=== PATIENT | female | born 1975 ===

== ENCOUNTER 2024-09-30 15:50 | Outpatient (AMB) | payer OTHER, SELFPAY ==
--- NOTE | 2024-09-30 15:54 | A.OFFPC_ITS ---
Vital Signs 09/30/24 16:01 Height 5 ft 1 in Weight 132 lb BMI 24.9 BP 102/68 Blood Pressure Location Rt brachial Position Sitting Respiration 12 Pulse 97 Pulse Source Pulse Oximeter Temp 96.9 F Temp Source Oral Pulse Oximetry (%) 97 Oxygen Delivery Method Room Air Intake Visit Reasons: est care/t2dm Intake Note: [facility] Public Relations Analyst Required: No Allergies No Known Allergies Allergy (Verified 09/30/24 15:55) Tobacco use date assessed: 09/30/24 Dental Screening Dental Screen Date: 09/30/24 Did you have a dental visit in the last 12 months?: Yes Did you have a dental problem in the last 6 months where you did not have access to dental care?: No Was dental information given to patient?: Patient has dentist HPI HPI Comments History of Present Illness Details This is a 49-year-old female with a past medical history of hyperlipidemia presenting [facility] Patient reports she was diagnosed with diabetes when she was at the emergency department in August this year for a lumbar strain. Her labs showed hyperglycemia with a POC initially of 352 which decreased to 264. GFR and creatinine were normal. She was discharged on metformin 500 mg twice daily. She is taking it, but it causes diarrhea and stomach upset. She vomits occasionally after taking it. She denies family history of diabetes. She denies drug or alcohol use. She does not smoke. She endorses symptoms of diabetes within the past few months including weight loss, polydipsia and fatigue. She has hyperlipidemia previously treated with simvastatin. She has been off this medicine for quite awhile. She moved from [place] 2 years ago. Her is a cook at [employer]. She has a glucometer, but she has not been using it. She switched to diet juice. She does like to eat sugary foods. She has some high carb foods in her diet like tortillas. ROS: Constitutional: + weight loss and fatigue, no fevers, chills or night sweats Eyes: No vision changes Respiratory: No shortness of breath Cardiovascular: No chest pain, chest pressure or chest discomfort. No palpitations or pedal edema. Gastrointestinal: See HPI. Denies abdominal pain or blood in stools. Genitourinary: No dysuria, hematuria, urinary frequency. Neurologic: No numbness or tingling or weakness Skin: No rash or wounds Physical exam: Constitutional: Alert, in no distress. Head: Normocephalic. Neck: Supple, Full range of motion. No lymphadenopathy. No palpable thyroid masses. Respiratory: Clear to auscultation. Cardiovascular: S1 S2 regular. No murmurs. Gastrointestinal: Abdomen soft, non-tender, non-distended. Normal bowel sounds. No palpable masses. Psychiatric: Normal mood and affect [facility] Medical History (Updated 09/30/24 @ 16:22 by ANDREA Renae) Hyperlipidemia Type II diabetes mellitus No pertinent past medical history Surgical History (Updated 09/30/24 @ 16:23 by ANDREA Renae) History of hysterectomy Family History (Updated 09/30/24 @ 16:01 by Oumar Nance) Mother Cancer Thyroid disorder Maternal Grandmother Cancer Paternal Uncle Cancer Father Cardiovascular disease Social History (Updated 09/30/24 @ 15:59 by Oumar Nance) Household Members: Spouse Both parents involved: No Caregiver staying overnight: No Housing: House Are you a primary companion caregiver to a significant other at home: No Do you presently have visiting nurse or other home services: No 75 years or older and lives alone: No Alcohol intake: never Patient Tobacco Use Status: Never used Tobacco e-Cigarette/Vaping Use: Never Used Second Hand Smoke Exposure: No Current occupational status: employed 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 1. Little interest or pleasure in doing things: not at all 2. Feeling down, depressed, or hopeless: not at all 3. Trouble falling or staying asleep, or sleeping too much: not at all 4. Feeling tired or having little energy: not at all 5. Poor appetite or overeating: not at all 6. Feeling bad about yourself - or that you are a failure or have let yourself or your family down: not at all 7. Trouble concentrating on things, such as reading the newspaper or watching television: not at all 8. Moving or speaking so slowly that other people could have noticed. Or the opposite - being so fidgety or restless that you have been moving around a lot more than usual: not at all 9. Thoughts that you would be better off or of hurting yourself in some way: not at all Total score: 0 81366 - PHQ-9 Billing: Yes Source: Developed by Drs. Chad Collins, Amanda Do, Blayne Coker and colleagues, with an educational jenny from [employer]. Thrive Questionnaire Date Thrive assessed: 09/30/24 I am a: Patient What is your living situation today?: I have a steady place to live Within the past 12 months, did the food you bought not last and you didn't have the money to get more?: I choose not to answer this question Within the past 12 months, did you worry whether your food would run out before you got money to buy more?: I choose not to answer this question Do you have trouble paying for medicines?: No Do you have trouble getting transportation to medical appointments?: No Do you have trouble paying your heating and electricity bill?: No Do you have trouble taking care of your child, family member or friend?: No Do you have trouble with day-to-day activities such as bathing, preparing meals, shopping, managing finances, etc.?: No Are you currently unemployed and looking for a job?: No Are you interested in more education?: No Please select the resources that you would like help with: None Currently or been in a relationship where the following occur: I choose not to answer THRIVE Score: 0 AUDIT C Alcohol Use Questionnaire (AUDIT-C) 1. How often do you have a drink containing alcohol?: Never 3. How often do you have six or more drinks on one occasion?: Never Total Score: 0 KAROLYN-7 AMB Questionnaire KAROLYN-7 Date KAROLYN - 7 assessed: 09/30/24 Feeling nervous, anxious, or on edge: 0 = Not at all Not being able to stop or control worryin = Not at all Worrying too much about different things: 0 = Not at all Trouble relaxin = Not at all Being so restless that it is hard to sit still: 0 = Not at all Becoming easily annoyed or irritable: 0 = Not at all Feeling afraid as if something awful might happen: 0 = Not at all Total KAROLYN-7 score (0-4 normal; 5-9 mild; 10-14 moderate; 15-21 severe): 0 Source: Developed by Drs. Chad Collins, Amanda Do, Blayne Coker and colleagues, with an educational jenny from [employer]. KAROLYN-7 Assessment Billing KAROLYN-7 Assessment Tool: KAROLYN-7 Assessment 12451 Physical exam (Primary Care) Vital Signs: Last Vital Signs Temp 96.9 F 09/30/24 16:01 Pulse 97 09/30/24 16:01 Resp 12 09/30/24 16:01 BP 102/68 09/30/24 16:01 Pulse Ox 97 09/30/24 16:01 Oxygen Delivery Method Room Air 09/30/24 16:01 BMI result Body Mass Index 24.9 Tobacco/Smoking Status: Tobacco use Status Tobacco use date assessed 09/30/24 09/30/24 15:57 Patient Tobacco Use Status Never used Tobacco 09/30/24 16:03 e-Cigarette/Vaping Use Never Used 09/30/24 16:03 PHQ-9: PHQ-9 Score PHQ-9: Total score 0 09/30/24 15:55 Thrive Assessment: Date of Thrive Assessment Date Thrive assessed 09/30/24 09/30/24 15:55 Currently or been in a relationship where the following occur: I choose not to answer Coding Level of Care Code New Pt Level 4 (23975) Complex EM visit Add On G2211 Diagnoses Hyperlipidemia E78.5 Type II diabetes mellitus E11.9 Additional Codes KAROLYN-7 Assessment Billing - KAROLYN-7 Assessment Tool: KAROLYN-7 Assessment 64136 ([id number]) PHQ-9 - 64754 - PHQ-9 Billing: Yes ([id number]) Assessment & Plan Assessment & Plan (1) Hyperlipidemia: Code(s): E78.5 - Hyperlipidemia, unspecified Category: Medical (2) Type II diabetes mellitus: Code(s): E11.9 - Type 2 diabetes mellitus without complications Category: Medical Plan Discussed pathophysiology of Type II Diabetes Mellitus with the patient in detail.? I explained the long term acute care registered nurse risks and complications associated with uncontrolled diabetes including nephropathy, neuropathy, peripheral vascular disease, retinopathy, increased risk of heart disease and stroke.? Discussed lifestyle modification with the patient. Recommended 30 minutes of moderately vigorous exercise 5 days per week to promote weight loss. The patient is referred for an eye exam. Refer to dietitian. Given information from [employer]. Diabetic diet reviewed. Given normal BMI and no family history of diabetes I will check KAROLYN and islet cell antibodies and C-peptide. Stop your current metformin prescription and start Metformin extended release 500 mg 2 tablets in the morning. You can take 1 tablet twice if you prefer it. If GI upset does not resolve in 1-2 weeks on the new prescription call the office. Please check blood sugars once in the morning before eating and try to check 1-2 hours after lunch and/or dinner. Bring your meter to the next appointment. If you experience low blood sugar (blood sugar under 70), treat this by eating a chewable fruit candy like skittles or jelly beans (about 8 pieces), 4 ounces (1/2 cup) of fruit juice (not diet), 1 tablespoon of honey or 4 glucose tablets. If your blood sugar is under 55, take double the amount of one of the above. Recheck your blood sugar in [address] if you don't have a reliable way to check your blood sugar or if you have signs or symptoms of low sugar. Check lipid profile and discuss reinitiating statin at next appointment. She will have fasting labs completed. Follow up in 1 month for type 2 diabetes. Written instructions given to the patient. Orders: Orders Hemoglobin A1c Today E11.9 - Type 2 diabetes mellitus without complications Comprehensive Met. Panel Today E11.9 - Type 2 diabetes mellitus without complications TSH reflex Free T4 Today E11.9 - Type 2 diabetes mellitus without complications Vitamin B12 Today E11.9 - Type 2 diabetes mellitus without complications, Z91.89 - Other specified personal risk factors, not elsewhere classified Lipid Panel Today E11.9 - Type 2 diabetes mellitus without complications, E78.5 - Hyperlipidemia, unspecified B Type Natriuretic Peptide Today E11.9 - Type 2 diabetes mellitus without complications Microalbumin, Random (w Creat) Today E11.9 - Type 2 diabetes mellitus without complications Islet Cell Antibody Scrn/Titer Today E11.9 - Type 2 diabetes mellitus without complications Glutamic acid decarboxylase Ab Today E11.9 - Type 2 diabetes mellitus without complications C Peptide Today E11.9 - Type 2 diabetes mellitus without complications Referrals Ophthalmology Referral E11.9 - Type 2 diabetes mellitus without complications Wireless Consultant Nutrition Referral E11.65 - Type 2 diabetes mellitus with hyperglycemia Medications: New metformin ER 1,000 mg (2 x 500 mg) PO DAILY 180 tabs 0RF Discontinued metformin Discontinued Reason: Doctor's Order 500 mg PO BIDWMEAL 60 tabs 2RF Scribe Plan - Not visible on output: Stop your current metformin prescription and start Metformin extended releast 500 mg 2 tablets in the morning. You can take 1 tablet twice if you prefer it. Please check blood sugars once in the morning before eating and try to check 1-2 hours after lunch and/or dinner. Bring your meter to the next appointment. If you experience low blood sugar (blood sugar under 70), treat this by eating a chewable fruit candy like skittles or jelly beans (about 8 pieces), 4 ounces (1/2 cup) of fruit juice (not diet), 1 tablespoon of honey or 4 glucose tablets. If your blood sugar is under 55, take double the amount of one of the above. Recheck your blood sugar in [address] if you don't have a reliable way to check your blood sugar or if you have signs or symptoms of low sugar. I placed referral to the live out nanny and for an eye exam (you will get a letter in the mail and should receive phone calls). Please have fasting labwork done at one of the [facility] lab lo cations. [email or web address]
[2024-09-30 16:01] VITALS: BP 102/68; PULSE 97; RESP 12; TEMP 36.1; O2SAT 97; BMI 24.9
== END 2024-09-30 16:35 | disposition home or self-care (01) ==
PROVIDERS: PCP Physician Assistant Medical; Visit Provider Physician Assistant Medical
DX: E78.5 Hyperlipidemia, unspecified (principal); E11.9 Type 2 diabetes mellitus without complications

== ENCOUNTER → 2024-09-30 15:50 | Outpatient (BNVA) | payer OTHER, SELFPAY | PROVIDERS: PCP Physician Assistant Medical; Visit Provider Physician Assistant Medical | DX: E11.9 Type 2 diabetes mellitus without complications (principal); E78.5 Hyperlipidemia, unspecified | CPT/HCPCS: 96127 ==

== ENCOUNTER 2024-10-27 11:00 | Outpatient (AMB) | payer OTHER, SELFPAY ==
--- NOTE | 2024-10-27 11:12 | A.OFFVIS_ITS ---
VS Expanded 10/27/24 11:18 10/27/24 11:22 Height 5 ft 1 in 5 ft 1 in Weight 127 lb 10.362 oz 128 lb BMI 24.1 24.2 Intake Visit Reasons: Type 2 diabetes mellitus with hyperglycemia Allergies No Known Allergies Allergy (Verified 11/04/24 15:07) Nutrition Presentation Details: Pt presents for MNT for T2DM recently diagnosed food frequency fruits/d: 0-1/d ve-2/d fish: 0-1/wk dairy: 1-2 /d starches > 12/d beverages: water/milk/juice physical activity ADL etoh/smoking --- BS Monitoring Most Recent Diabetes Results: Microalb/Creat Ratio 14.6 ug/mg cr (<30) 11/03/24 Cholesterol 244 mg/dL (<200) H 11/03/24 HDL Cholesterol 66 mg/dL (>40) 11/03/24 Triglycerides 172 mg/dL (<150) H 11/03/24 Creatinine 0.63 mg/dL (0.5-1.4) 11/03/24 Blood Urea Nitrogen 13 mg/dL (9-16) 11/03/24 Sodium 139 mmol/L (135-145) 11/03/24 Potassium 3.8 mmol/L (3.3-5.1) 11/03/24 Chloride 107 mmol/L (96-108) 11/03/24 Carbon Dioxide 26 mmol/L (22-29) 11/03/24 Calcium 9.0 mg/dL (8.4-10.2) 11/03/24 AST 16 U/L (5-31) 11/03/24 ALT 14 U/L (0-31) 11/03/24 Total Protein 7.0 g/dL (6.5-8.0) 11/03/24 Albumin 4.0 g/dL (3.5-5.0) 11/03/24 RAR-Ihficfe-[place]t.[place] Equation Height: 5 ft 1 in Weight: 128 lb Resting Metabolic Rate: 1136.47 Calculated Activity Level: Mild Activity Calories Needed to Maintain Weight: 1562.65 Diagnosis Nutrition problem #1: food nutri know defi As related to (etiology) #1: diagnosis As evidenced by (sign/symptom) #1: knowledge deficit of diet [facility] Medical History (Updated 11/04/24 @ 15:39 by ANDREA Renae) Low back pain Left shoulder pain Hyperlipidemia Type II diabetes mellitus No pertinent past medical history Surgical History (Updated 09/30/24 @ 16:23 by ANDREA Renae) History of hysterectomy Family History (Updated 09/30/24 @ 16:01 by Oumar Nance MA) Mother Cancer Thyroid disorder Maternal Grandmother Cancer Paternal Uncle Cancer Father Cardiovascular disease Social History (Updated 09/30/24 @ 15:59 by Oumar Nance MA) Household Members: Spouse Both parents involved: No Caregiver staying overnight: No Housing: House Are you a primary respiratory care technician to a significant other at home: No Do you presently have visiting nurse or other home services: No 75 years or older and lives alone: No Alcohol intake: never Patient Tobacco Use Status: Never used Tobacco e-Cigarette/Vaping Use: Never Used Second Hand Smoke Exposure: No Current occupational status: employed 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 Cognitive needs: No Hearing needs: No Vision needs: No Assessment & Plan Assessment & Plan (1) Type II diabetes mellitus: Code(s): E11.9 - Type 2 diabetes mellitus without complications Category: Medical Plan: Wt: 58 Kg ( 11/02 ) Est kcal needs as per MSJ: 1600 (40% carb, 30% protein/fat) Est fluid needs as per 25-30 ml/d: 1745 Est prot per day as per 1 g/kg bw: 60 Recommend fiber intake : 8-10 g per day and gradually increase to 25-28 g per day for women and 35-38 g for men or as tolerated Recommend sodium intake per day : less than 1500 mg less than 2000 mg Educated patient on: ( R = reviewed V = verbalizes understanding N/R = needs review N/A = not applicable * Food sources of carbohydrate, adequate serving sizes and its role in various health conditions: R * Differences between complex carbohydrates a simple carbohydrates, role of fiber in diet: R * Lean protein sources of foods: R V NR * Differences between types of fats and role in diet (mono on saturated fat fatty acids, saturated fatty acids, trans fats): R V N/R * Food sources of sodium in salt and healthy modifications for heart health in kidney health: R V R/V * Vitamins and minerals: R V N/R * Healthy plate method concept: R * Physical activity: Benefits a precaution: R V N/R * Hypoglycemia protocol (rule of 15): R V N/R * Dietary prevention of Hyperglycemia: R V R/V Patient Instructions: Choose fiber rich foods follow healthy plate method, 30-45 g of carbs per meal and 0-20 g as snack Keep hydrated by having water with meals/snacks Coding Level of Care Code Nutr Indiv Intake (49226) Diagnoses Type II diabetes mellitus E11.9 Time Spent (min) 30
[2024-10-27 11:18] VITALS: BMI 24.1
[2024-11-04 22:08] VITALS: BMI 24.2
== END 2024-10-27 11:35 | disposition home or self-care (01) ==
LOC: HO.ENCR 11:01
PROVIDERS: PCP Physician Assistant Medical; Visit Provider Dietitian, Registered
DX: E11.9 Type 2 diabetes mellitus without complications (principal)

== ENCOUNTER → 2024-10-27 11:00 | Outpatient (BNVA) | payer OTHER, SELFPAY | PROVIDERS: PCP Physician Assistant Medical; Visit Provider Dietitian, Registered | DX: E11.9 Type 2 diabetes mellitus without complications (principal); Z71.3 Dietary counseling and surveillance | CPT/HCPCS: 97802 ==

== ENCOUNTER 2024-11-03 08:40 | Outpatient (REF) | payer OTHER, SELFPAY ==
[2024-11-03 11:07] LABS: Estimated Average Glucose 235 mg/dL; Hemoglobin A1c % 9.8 % (<6.0)
[2024-11-03 11:34] LABS: B Type Natriuretic Peptide < 10 pg/mL (<100)
[2024-11-03 11:56] LABS: Creatinine Urine 143.56 mg/dL; Microalbum/Creatinine Ratio Ur 14.6 ug/mg cr (<30)
[2024-11-03 11:58] LABS: Alanine Aminotransferase 14 U/L (0-31); Alkaline Phosphatase 77 U/L (39-117); Anion Gap 10 (12-20); Aspartate Amino Transferase 16 U/L (5-31); Bilirubin Total 0.8 mg/dL (0.0-1.0); Blood Urea Nitrogen 13 mg/dL (9-16); Carbon Dioxide 26 mmol/L (22-29); Chloride 107 mmol/L (96-108); Cholesterol 244 mg/dL (<200); Estimated Glomerular Filt Rate > 60; Glucose Random 152 mg/dL (60-115); HDL Cholesterol 66 mg/dL (>40); LDL Cholesterol Calculated 144 mg/dL (<100); Potassium 3.8 mmol/L (3.3-5.1); Sodium 139 mmol/L (135-145); TSH reflex Free T4 1.57 uIU/mL (0.32-4.0); Triglycerides 172 mg/dL (<150)
[2024-11-03 12:31] LABS: Vitamin B12 1259 pg/mL (200-900)
[2024-11-04 17:18] LABS: C Peptide 1.08 ng/mL (0.80-3.85)
[2024-11-07 00:04] LABS: Islet Cell Antibody Screen NEGATIVE (NEGATIVE)
[2024-11-08 16:38] LABS: Glutamic acid decarboxylase Ab <5 IU/mL (<5)
== END 2024-11-03 08:41 | disposition home or self-care (01) ==
LOC: HO.WFDLDS 08:40
PROVIDERS: PCP Physician Assistant Medical; Visit Provider Physician Assistant Medical
DX: E11.9 Type 2 diabetes mellitus without complications (principal); E78.5 Hyperlipidemia, unspecified; Z91.89 Other specified personal risk factors, not elsewhere classified
CPT/HCPCS: 36415; 80053; 80061; 82043; 82570; 82607; 83036; 83880; 84443; 84681; 86341

== ENCOUNTER 2024-11-04 14:59 | Outpatient (AMB) | payer OTHER, SELFPAY ==
--- NOTE | 2024-11-04 15:06 | A.OFFPC_ITS ---
Vital Signs 11/04/24 15:13 Height 5 ft 1 in Weight 128 lb 8 oz BMI 24.3 BP 115/68 Blood Pressure Location Rt brachial Position Sitting Respiration 12 Pulse 96 Pulse Source Pulse Oximeter Temp 97.1 F Temp Source Oral Pulse Oximetry (%) 96 Oxygen Delivery Method Room Air Intake Visit Reasons: diabetes follow up Intake Note: Follow up diabetes Test Engine Operator Required: No Allergies No Known Allergies Allergy (Verified 11/04/24 15:07) Tobacco use date assessed: 11/04/24 Dental Screening Dental Screen Date: 11/04/24 Did you have a dental visit in the last 12 months?: Yes Did you have a dental problem in the last 6 months where you did not have access to dental care?: No Was dental information given to patient?: Patient has dentist HPI HPI Comments History of Present Illness Details This is a 49-year-old female with a past medical history of hyperlipidemia and type 2 diabetes presenting for follow up. She was diagnosed with type 2 diabetes in August 2023 when she was seen at the emergency department for a lumbar strain. Her labs showed hyperglycemia with a POC initially of 352. GFR and creatinine were normal. She was discharged on m etformin 500 mg twice a day, but it caused diarrhea and stomach upset and occasional vomiting so it was switched to the extended release formula. She is tolerating this medication and compliant with it. I reviewed a list of her glucose readings which have improved but are still suboptimal. No hypoglycemic events. Hemoglobin A1c is 9.8%. I reviewed her lab results from 11/03/2024. Her renal function is normal. There is no proteinuria. TSH was normal. Her LDL cholesterol and triglycerides are elevated at 144 and 172 respectively. KAROLYN antibody, islet cell antibody and C- peptide are pending. There is no family history of type 1 diabetes. She moved from [place] 2 years ago. Her is a cook at [employer]. She switched to diet juice. She does like to eat sugary foods. She has some high carb foods in her diet like tortillas. Patient says she is still having pain across both sides of her lower back and the middle. She also endorses shoulder pain for the last few months on the left side. It hurts to raise her shoulder up. Her back hurts more when she bends forward. Pain is moderate. No numbness, tingling or weakness in the extremities. No loss of bowel or bladder control. No history of trauma. She is requesting a refill on muscle relaxant. She takes Tylenol as needed for the pain. ROS: Constitutional: Denies weight loss, fatigue, fevers, chills or night sweats. Eyes: No vision changes Respiratory: No shortness of breath, cough or wheezing. Cardiovascular: No chest pain, chest pressure or chest discomfort. No palpitations or pedal edema. Gastrointestinal: No abdominal pain, nausea, vomiting, diarrhea or blood in stools. Genitourinary: No dysuria, hematuria, urinary frequency. Neurologic: No numbness or tingling or weakness Skin: No rash or wounds Physical exam: Constitutional: Alert, in no distress. Head: Normocephalic. Neck: Supple, Full range of motion. No lymphadenopathy. No palpable thyroid masses. Respiratory: Clear to auscultation. Cardiovascular: S1 S2 regular. No murmurs. Gastrointestinal: Abdomen soft, non-tender, non-distended. Normal bowel sounds. No palpable masses. Psychiatric: Normal mood and affect Shoulders: Nontender to palpation. Patient is able to lift her left arm up but can not go past 180 degrees., and this is painful. Positive left empty can test. Shoulder nontender to palpation. Back: No midline tenderness. Decreased flexion which is painful. Full range of motion otherwise. Negative straight leg raises bilaterally. Neurologic: Extremity strength 5/5 bilaterally. Sensation intact bilaterally. Extremities: Set symmetric peripheral pulses of the upper and lower extremities. [facility] Medical History (Updated 11/04/24 @ 15:39 by ANDREA Renae) Low back pain Left shoulder pain Hyperlipidemia Type II diabetes mellitus No pertinent past medical history Surgical History (Updated 09/30/24 @ 16:23 by ANDREA Renae) History of hysterectomy Family History (Updated 09/30/24 @ 16:01 by Oumar Nance MA) Mother Cancer Thyroid disorder Maternal Grandmother Cancer Paternal Uncle Cancer Father Cardiovascular disease Social History (Updated 09/30/24 @ 15:59 by Oumar Nance MA) Household Members: Spouse Both parents involved: No Caregiver staying overnight: No Housing: House Are you a primary hearing healthcare practitioner to a significant other at home: No Do you presently have visiting nurse or other home services: No 75 years or older and lives alone: No Alcohol intake: never Patient Tobacco Use Status: Never used Tobacco e-Cigarette/Vaping Use: Never Used Second Hand Smoke Exposure: No Current occupational status: employed 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 Cognitive needs: No Hearing needs: No Vision needs: No Questionnaire Thrive Questionnaire Date Thrive assessed: 09/30/24 I am a: Patient What is your living situation today?: I have a steady place to live Within the past 12 months, did the food you bought not last and you didn't have the money to get more?: I choose not to answer this question Within the past 12 months, did you worry whether your food would run out before you got money to buy more?: I choose not to answer this question Do you have trouble paying for medicines?: No Do you have trouble getting transportation to medical appointments?: No Do you have trouble paying your heating and electricity bill?: No Do you have trouble taking care of your child, family member or friend?: No Do you have trouble with day-to-day activities such as bathing, preparing meals, shopping, managing finances, etc.?: No Are you currently unemployed and looking for a job?: No Are you interested in more education?: No Please select the resources that you would like help with: None Currently or been in a relationship where the following occur: I choose not to answer THRIVE Score: 0 KAROLYN-7 AMB Questionnaire KAROLYN-7 Date KAROLYN - 7 assessed: 09/30/24 Source: Developed by Drs. Chad Collins, Amanda Do, Blayne Coker and colleagues, with an educational jenny from [employer]. Physical exam (Primary Care) Vital Signs: Last Vital Signs Temp 97.1 F 11/04/24 15:13 Pulse 96 11/04/24 15:13 Resp 12 11/04/24 15:13 BP 115/68 11/04/24 15:13 Pulse Ox 96 11/04/24 15:13 Oxygen Delivery Method Room Air 11/04/24 15:13 BMI result Body Mass Index 24.3 Tobacco/Smoking Status: Tobacco use Status Tobacco use date assessed 11/04/24 11/04/24 15:08 Patient Tobacco Use Status Never used Tobacco 11/04/24 15:06 e-Cigarette/Vaping Use Never Used 11/04/24 15:06 Thrive Assessment: Date of Thrive Assessment Date Thrive assessed 09/30/24 11/04/24 15:06 Currently or been in a relationship where the following occur: I choose not to answer Coding Level of Care Code [place] Pt Level 4 (23148) Complex EM visit Add On G2211 Diagnoses Hyperlipidemia E78.5 Type II diabetes mellitus E11.9 Low back pain M54.50 Left shoulder pain M25.512 Assessment & Plan Assessment & Plan (1) Hyperlipidemia: Code(s): E78.5 - Hyperlipidemia, unspecified Category: Medical Plan: Recommended Mediterranean diet. Avoid full fat dairy products and red meat. Exercise regularly. Avoid tobacco use. Start rosuvastatin 10 mg. Side effects and administration reviewed. (2) Type II diabetes mellitus: Code(s): E11.9 - Type 2 diabetes mellitus without complications Category: Medical Plan: Discussed pathophysiology of Type II Diabetes Mellitus with the patient in detail.? I explained the long goods drier risks and complications associated with uncontrolled diabetes including nephropathy, neuropathy, peripheral vascular disease, retinopathy, increased risk of heart disease and stroke.? Increase metformin extended release to 2 pills in the morning and 1 pill at night for a week and then increase to 2 pills twice daily. If you experience low blood sugars decrease to 2 pills in the morning and 1 at night. Continue to check blood sugars regularly and bring glucometer to appointment. If you experience low blood sugar (blood sugar under 70), treat this by eating a chewable fruit candy like skittles or jelly beans (about 8 pieces), 4 ounces (1/2 cup) of fruit juice (not diet), 1 tablespoon of honey or 4 glucose tablets. If your blood sugar is under 55, take double the amount of one of the above. Recheck your blood sugar in [address] if you don't have a reliable way to check your blood sugar or if you have signs or symptoms of low sugar. (3) Low back pain: Code(s): M54.50 - Low back pain, unspecified Category: Medical Plan: X-ray ordered for initial evaluation. Continue referral to physical therapy. Refilled cyclobenzaprine. Advised not to drive or operate heavy machinery since the medication can cause sedation and drowsiness. (4) Left shoulder pain: Code(s): M25.512 - Pain in left shoulder Category: Medical Plan: X-ray ordered for initial evaluation. Continue referral to physical therapy. Plan Follow up in 3 months for type 2 diabetes. Orders: Orders XR shoulder LT min 2V 11/04/24 M25.512 - Pain in left shoulder XR lumbar spine 2-3V 11/04/24 M54.50 - Low back pain, unspecified Medications: New lancets (OneTouch Delica Plus Lancet) Use as directed to check blood glucose twice daily. 100 ea 5RF cyclobenzaprine 5 - 10 mg (1 - 2 x 5 mg) PO BEDTIME PRN 60 tabs 0RF muscle spasm rosuvastatin (Crestor) 10 mg PO .qhs 90 tabs 1RF Changed From metformin ER 1,000 mg (2 x 500 mg) PO DAILY 180 tabs 0RF To metformin ER 1,000 mg (2 x 500 mg) PO BID 360 tabs 0RF
[2024-11-04 15:13] VITALS: BP 115/68; PULSE 96; RESP 12; TEMP 36.2; O2SAT 96; BMI 24.3
== END 2024-11-04 15:42 | disposition home or self-care (01) ==
LOC: HO.HMCFM 15:00
PROVIDERS: PCP Physician Assistant Medical; Visit Provider Physician Assistant Medical
DX: E78.5 Hyperlipidemia, unspecified (principal); E11.9 Type 2 diabetes mellitus without complications; M54.50 Low back pain, unspecified; M25.512 Pain in left shoulder

== ENCOUNTER 2025-02-02 09:22 | Outpatient (AMB) | payer OTHER, SELFPAY ==
--- NOTE | 2025-02-02 09:36 | A.OFFVIS_ITS ---
VS Expanded 02/02/25 09:37 Height 5 ft 1 in Weight 125 lb 10.616 oz BMI 23.7 Intake Visit Reasons: T2DM Allergies No Known Allergies Allergy (Verified 11/04/24 15:07) Nutrition Presentation Details: PT presents for MNT f/u for T2DM Pt did not bring glucometer to this appt. REports fasting BG range from 170s to 190s Pt reports working at [employer] and lacks appetite during the day , works from 3-11 pm and tends to have larger portion of a meal in the evening 75-90 g of carbs at 9 pm meal Typical meal intake 10: 2 eggs with 1- 2 corn tortilla, coffee with diet sugar and almond milk 3-5 pm sandwich or fruit or may skip 8-9 pm pasta and sweet potato/ broccoli and fish 11pm : fruit (not daily) BS Monitoring Most Recent Diabetes Results: Microalb/Creat Ratio, (<30) 14.6 ug/mg cr 11/03/24 Cholesterol, (<200) 244 mg/dL H 11/03/24 HDL Cholesterol, (>40) 66 mg/dL 11/03/24 Triglycerides, (<150) 172 mg/dL H 11/03/24 Creatinine, (0.5-1.4) 0.63 mg/dL 11/03/24 BUN, (9-16) 13 mg/dL 11/03/24 Sodium, (135-145) 139 mmol/L 11/03/24 Potassium, (3.3-5.1) 3.8 mmol/L 11/03/24 Chloride, (96-108) 107 mmol/L 11/03/24 Carbon Dioxide, (22-29) 26 mmol/L 11/03/24 Calcium, (8.4-10.2) 9.0 mg/dL 11/03/24 AST, (5-31) 16 U/L 11/03/24 ALT, (0-31) 14 U/L 11/03/24 Total Protein, (6.5-8.0) 7.0 g/dL 11/03/24 Albumin, (3.5-5.0) 4.0 g/dL 11/03/24 [facility] Medical History (Updated 11/04/24 @ 15:39 by NADREA Renae) Low back pain Left shoulder pain Hyperlipidemia Type II diabetes mellitus No pertinent past medical history Surgical History (Updated 09/30/24 @ 16:23 by ANDREA Renae) History of hysterectomy Family History (Updated 09/30/24 @ 16:01 by Oumar Nance MA) Mother Cancer Thyroid disorder Maternal Grandmother Cancer Paternal Uncle Cancer Father Cardiovascular disease Social History (Updated 09/30/24 @ 15:59 by Oumar Nance MA) Household Members: Spouse Both parents involved: No Caregiver staying overnight: No Housing: House Are you a primary youth care worker to a significant other at home: No Do you presently have visiting nurse or other home services: No 75 years or older and lives alone: No Alcohol intake: never Patient Tobacco Use Status: Never used Tobacco e-Cigarette/Vaping Use: Never Used Second Hand Smoke Exposure: No Current occupational status: employed 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 Cognitive needs: No Hearing needs: No Vision needs: No Assessment & Plan Assessment & Plan (1) Type II diabetes mellitus: Code(s): E11.9 - Type 2 diabetes mellitus without complications Category: Medical Plan: Wt: 58 Kg ( 11/02 ), 57 kg (02/02) Est kcal needs as per MSJ: 1600 (40% carb, 30% protein/fat) Est fluid needs as per 25-30 ml/d: 1745 Est prot per day as per 1 g/kg bw: 60 Recommend fiber intake : 8-10 g per day and gradually increase to 25-28 g per day for women and 35-38 g for men or as tolerated Recommend sodium intake per day : less than 1500 mg less than 2000 mg Educated patient on: ( R = reviewed V = verbalizes understanding N/R = needs review N/A = not applicable * Food sources of carbohydrate, adequate serving sizes and its role in various health conditions: R * Differences between complex carbohydrates a simple carbohydrates, role of fiber in diet: R * Lean protein sources of foods: R * Differences between types of fats and role in diet (mono on saturated fat fatty acids, saturated fatty acids, trans fats): R V N/R * Food sources of sodium in salt and healthy modifications for heart health in kidney health: R V R/V * Vitamins and minerals: R V N/R * Healthy plate method concept: R * Physical activity: Benefits a precaution: R V * Hypoglycemia protocol (rule of 15): R V N/R * Dietary prevention of Hyperglycemia: R Patient Instructions: Have protein glucerna shake at 5 pm as a snack work on balancing meal and have either a 1-2 serving of pasta or sweet potato with protein /vegetable at 8 pm meal (working on reducing on amount of carb at night meal) monitor your blood sugar bring to your next appt with Renetta on 02/2025 Coding Level of Care Code Nutr Indiv Subseq ([id number]) Diagnoses Type II diabetes mellitus E11.9 Time Spent (min) 30
[2025-02-02 09:37] VITALS: BMI 23.7
== END 2025-02-02 10:06 | disposition home or self-care (01) ==
LOC: HO.ENCR 09:22
PROVIDERS: PCP Physician Assistant Medical; Visit Provider Dietitian, Registered
DX: E11.9 Type 2 diabetes mellitus without complications (principal)

== ENCOUNTER → 2025-02-02 09:22 | Outpatient (BNVA) | payer OTHER, SELFPAY | PROVIDERS: PCP Physician Assistant Medical; Visit Provider Dietitian, Registered | DX: E11.9 Type 2 diabetes mellitus without complications (principal) | CPT/HCPCS: 97803 ==

== ENCOUNTER 2025-03-23 09:26 | Outpatient (AMB) | payer OTHER, SELFPAY ==
[2025-03-23 09:51] VITALS: BMI 23.7
--- NOTE | 2025-03-23 09:51 | A.OFFVIS_ITS ---
VS Expanded 03/23/25 09:51 Height 5 ft 1 in Weight 125 lb 10.616 oz BMI 23.7 Intake Visit Reasons: T2DM Allergies No Known Allergies Allergy (Verified 11/04/24 15:07) Nutrition Presentation Details: Pt presents for MNT f/u for T2DM Pt not monitoring herself this past month, had DC and was in hospt for almost a month Pt reports needing to get into a meal routine since she does not have a meal routine. 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 BS Monitoring Most Recent Diabetes Results: Microalb/Creat Ratio, (<30) 14.6 ug/mg cr 11/03/24 Cholesterol, (<200) 244 mg/dL H 11/03/24 HDL Cholesterol, (>40) 66 mg/dL 11/03/24 Triglycerides, (<150) 172 mg/dL H 11/03/24 Creatinine, (0.5-1.4) 0.63 mg/dL 11/03/24 BUN, (9-16) 13 mg/dL 11/03/24 Sodium, (135-145) 139 mmol/L 11/03/24 Potassium, (3.3-5.1) 3.8 mmol/L 11/03/24 Chloride, (96-108) 107 mmol/L 11/03/24 Carbon Dioxide, (22-29) 26 mmol/L 11/03/24 Calcium, (8.4-10.2) 9.0 mg/dL 11/03/24 AST, (5-31) 16 U/L 11/03/24 ALT, (0-31) 14 U/L 11/03/24 Total Protein, (6.5-8.0) 7.0 g/dL 11/03/24 Albumin, (3.5-5.0) 4.0 g/dL 11/03/24 [facility] Medical History (Updated 11/04/24 @ 15:39 by ANDREA Renae) Low back pain Left shoulder pain Hyperlipidemia Type II diabetes mellitus No pertinent past medical history Surgical History (Updated 09/30/24 @ 16:23 by ANDREA Renae) History of hysterectomy Family History (Updated 09/30/24 @ 16:01 by Oumar Nance MA) Mother Cancer Thyroid disorder Maternal Grandmother Cancer Paternal Uncle Cancer Father Cardiovascular disease Social History (Updated 09/30/24 @ 15:59 by Oumar Nance MA) Household Members: Spouse Both parents involved: No Caregiver staying overnight: No Housing: House Are you a primary child care teacher to a significant other at home: No Do you presently have visiting nurse or other home services: No 75 years or older and lives alone: No Alcohol intake: never Patient Tobacco Use Status: Never used Tobacco e-Cigarette/Vaping Use: Never Used Second Hand Smoke Exposure: No Current occupational status: employed 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 Cognitive needs: No Hearing needs: No Vision needs: No Assessment & Plan Assessment & Plan (1) Type II diabetes mellitus: Code(s): E11.9 - Type 2 diabetes mellitus without complications Category: Medical Plan: Wt: 58 Kg ( 11/02 ), 57 kg (02/02), 04/04 Est kcal needs as per MSJ: 1600 (40% carb, 30% protein/fat) Est fluid needs as per 25-30 ml/d: 1745 Est prot per day as per 1 g/kg bw: 60 Recommend fiber intake : 8-10 g per day and gradually increase to 25-28 g per day for women and 35-38 g for men or as tolerated Recommend sodium intake per day : less than 1500 mg less than 2000 mg Educated patient on: ( R = reviewed V = verbalizes understanding N/R = needs review N/A = not applicable * Food sources of carbohydrate, adequate serving sizes and its role in various health conditions: R * Differences between complex carbohydrates a simple carbohydrates, role of fiber in diet: R * Lean protein sources of foods: R * Differences between types of fats and role in diet (mono on saturated fat fatty acids, saturated fatty acids, trans fats): R * Food sources of sodium in salt and healthy modifications for heart health in kidney health: R V R/V * Vitamins and minerals: R V * Healthy plate method concept: R * Physical activity: Benefits a precaution: R V * Hypoglycemia protocol (rule of 15): R V N/R * Dietary prevention of Hyperglycemia: R Patient Instructions: REsume monitoring bg fasting work on meal schedule following total carb per meal 30-45 g and 18-30 g protein per meal Keep hydrated by having water with meals/snacks see meal plan printed as reference t Coding Level of Care Code Nutr Indiv Subseq ([id number]) Diagnoses Type II diabetes mellitus E11.9 Time Spent (min) 30
--- OUTSIDE RECORDS SUMMARY | 2025-03-23 09:52 | XMS_ITS | Clinical Summary ---
Author Organization [facility] Address [address] [place], [place] [id number] Phone Care Team Providers Care Oracle Database Administrator Name Role Phone Pcp, Not Required Primary Care Provider Unavaila ble Allergies No known active allergies Medications No known medications Social History Tobacco Use Types Packs/Day Years Used Date Smoking Tobacco: Never Assessed Education Answer Date Recorded Are you interested in more education? Not on bebeto e 03/23/2024 Are you concerned about learning? Not on file 03/23/2024 No 03/23/2024 No 03/23/2024 Digital Access Answer Date Recorded No 03/23/2024 No 03/23/2024 Reliable internet access at home? Not on file 03/23/2024 Device with a working camera? Not on file Comments Unknown Sex and Gender Information Value Date Recorded Sex Assigned at Not on file Legal Sex Female 3:46 PM EDT Gender Identity Not on file Sexual Orientation Not on file Last Filed Vital Signs Vital Sign Reading Time Taken Comments Blood Pressure 120/75 03/23/2024 4:00 PM EDT Pulse 105 03/23/2024 4:00 PM EDT Temperature 37.2 C (98.9 F) 03/23/2024 4:00 PM EDT Respiratory Rate 17 03/23/2024 4:00 PM EDT Oxygen Saturation 97% 03/23/2024 4:00 PM EDT Inhaled Oxygen Concentration - - Weight 58.1 kg (128 lb) 03/23/2024 4:00 PM EDT Height 154.9 cm (5' 1 ) 03/23/2024 4:00 PM EDT Body Mass Index 24.19 03/23/2024 4:00 PM EDT Plan of Treatment Health Maintenance Due Date Last Done Comments Adult Td,Tdap Booster 1973 LIPID PANEL 1973 DEPRESSION SCREENING 1985 SMOKING Hx and SMOKELESS TOB ACCO SCREENING 1986 HEPATITIS C SCREENING 1991 HIV ONE-TIME SCREENING (18-6 5 YEARS) 1991 PAP SMEAR 1994 MAMMOGRAM 2013 COLOGUARD 2018 COLONOSCOPY 2018 COLORECTAL CANCER SCREENING 2018 FIT TEST 2018 FOBT 2018 SIGMOIDOSCOPY 2018 VIRTUAL COLONOSCOPY 2018 PNEUMOCOCCAL VACCINES (50+ y ears) (1 of 1 - PCV) 2023 ZOSTER VACCINES (1 of 2) 2023 COVID-19 VACCINE (2023-2 5 season) 2024 HEPATITIS A VACCINES Aged Out No long er eligible based on patient's age to complete this topic HIB VACCINES Aged Out No longer eligi ble based on patient's age to complete this topic MENINGOCOCCAL VACCINES (ACWY) Aged Out No longer eligible based on patient's age to complete this topic MENINGOCOCCAL VACCINES (B) Aged Out N o longer eligible based on patient's age to complete this topic Medical Devices Not on file Insurance [employer] Care Teams Oracle Database Administrator Relationship Specialty Start Date End Date Pcp, Not Required [address] [place] [id number] PCP - General 03/24/24 Additional Source Comments The information contained in this document represents components of the legal health record. It is not the complete legal health record.[facility]
== END 2025-03-23 10:11 | disposition home or self-care (01) ==
LOC: HO.ENCR 09:26
PROVIDERS: PCP Physician Assistant Medical; Visit Provider Dietitian, Registered
DX: E11.9 Type 2 diabetes mellitus without complications (principal)

== ENCOUNTER → 2025-03-23 09:26 | Outpatient (BNVA) | payer OTHER, SELFPAY | PROVIDERS: PCP Physician Assistant Medical; Visit Provider Dietitian, Registered | DX: E11.9 Type 2 diabetes mellitus without complications (principal) | CPT/HCPCS: 97803 ==

== ENCOUNTER 2025-04-12 13:16 | Emergency (ER) | payer OTHER, SELFPAY ==
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
[2025-04-12 13:46] VITALS: BP 126/75; PULSE 102; RESP 18; TEMP 36.4; O2SAT 99; BMI 23.9
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
[2025-04-12 15:30] VITALS: BP 122/71; PULSE 95; RESP 16; TEMP 36.4; O2SAT 99
[2025-04-12 15:44] VITALS: BP 122/71; PULSE 95; RESP 16; TEMP 36.4; O2SAT 99
--- OUTSIDE RECORDS SUMMARY | 2025-04-12 16:28 | XMS_ITS | Clinical Summary ---
Author Organization [facility] Address [address] [place], [place] [id number] Phone Care Team Providers Care Account Liaison Name Role Phone Pcp, Not Required Primary [...] on file Insurance [employer] Care Teams Account Liaison Relationship Specialty Start Date End Date Pcp, Not Required [address] [place] [id number] PCP - General 03/24/24 Additional Source Comments The information contained in this document represents components of the legal health record. It is not the complete legal health record.[facility]
== END 2025-04-12 15:50 | disposition home or self-care (01) ==
PROVIDERS: Emergency Provider Emergency Medicine; PCP Physician Assistant Medical
DX: S16.1XXA Strain of muscle, fascia and tendon at neck level, initial encounter (principal); V43.52XA Car driver injured in collision with other type car in traffic accident, initial encounter; Y93.9 Activity, unspecified; Y92.9 Unspecified place or not applicable; Y99.9 Unspecified external cause status; M54.2 Cervicalgia; E11.9 Type 2 diabetes mellitus without complications; E78.5 Hyperlipidemia, unspecified
CPT/HCPCS: 70450; 72125; 99283; 99284

== ENCOUNTER → 2025-04-12 14:00 | Outpatient (BNV) | payer OTHER, SELFPAY | PROVIDERS: Emergency Provider Emergency Medicine; PCP Physician Assistant Medical; Visit Provider Radiology Diagnostic Radiology | DX: M47.812 Spondylosis without myelopathy or radiculopathy, cervical region (principal); S09.90XA Unspecified injury of head, initial encounter | CPT/HCPCS: 70450; 72125 ==

== ENCOUNTER 2025-04-21 15:44 | Outpatient (AMB) | payer OTHER, SELFPAY ==
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
[2025-04-21 16:00] VITALS: BP 118/64; PULSE 95; RESP 16; TEMP 36.2; O2SAT 96; BMI 24.0
--- OUTSIDE RECORDS SUMMARY | 2025-04-21 18:47 | XMS_ITS | Clinical Summary ---
Author Organization [facility] Address [address] [place], [place] [id number] Phone Care Team Providers Care Swing Tender Name Role Phone Pcp, Not Required Primary [...] 2023 ZOSTER VACCINES (1 of 2) 2023 INFLUENZA VACCINE (#1) 2025 COVID-19 VACCINE (2023-2 5 season) 2025 HEPATITIS A VACCINES Aged Out No long [...] on file Insurance [employer] Care Teams Swing Tender Relationship Specialty Start Date End Date Pcp, Not Required [address] [place] [id number] PCP - General 03/24/24 Additional Source Comments The information contained in this document represents components of the legal health record. It is not the complete legal health record.[facility]
== END 2025-04-21 16:32 | disposition home or self-care (01) ==
LOC: HO.HMCFM 15:45
PROVIDERS: PCP Physician Assistant Medical; Visit Provider Physician Assistant Medical
DX: S16.1XXA Strain of muscle, fascia and tendon at neck level, initial encounter (principal)

== ENCOUNTER 2025-05-12 09:00 | Outpatient (REF) | payer OTHER, SELFPAY ==
[2025-05-12 12:42] LABS: Alanine Aminotransferase 7 U/L (0-31); Albumin Level 4.2 g/dL (3.5-5.0); Alkaline Phosphatase 68 U/L (39-117); Anion Gap 11 (12-20); Aspartate Amino Transferase 16 U/L (5-31); Blood Urea Nitrogen 8 mg/dL (9-16); Calcium 9.0 mg/dL (8.4-10.2); Carbon Dioxide 28 mmol/L (22-29); Chloride 107 mmol/L (96-108); Cholesterol 224 mg/dL (<200); Estimated Glomerular Filt Rate > 60; HDL Cholesterol 62 mg/dL (>40); Potassium 3.7 mmol/L (3.3-5.1); Sodium 142 mmol/L (135-145); Total Protein 7.1 g/dL (6.5-8.0); Triglycerides 101 mg/dL (<150)
== END 2025-05-12 09:01 | disposition home or self-care (01) ==
LOC: HO.WFDLDS 09:00
PROVIDERS: PCP Physician Assistant Medical; Visit Provider Physician Assistant Medical
DX: E11.3393 Type 2 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, bilateral (principal); E78.5 Hyperlipidemia, unspecified; N63.11 Unspecified lump in the right breast, upper outer quadrant; E78.00 Pure hypercholesterolemia, unspecified; Z79.85 Long-term (current) use of injectable non-insulin antidiabetic drugs; Z79.84 Long term (current) use of oral hypoglycemic drugs; Z79.899 Other long term (current) drug therapy
CPT/HCPCS: 36415; 80053; 80061; 83036

== ENCOUNTER 2025-05-12 09:00 | Outpatient (AMB) | payer OTHER, SELFPAY ==
--- NOTE | 2025-05-12 09:15 | A.OFFPC_ITS ---
Vital Signs 05/12/25 09:19 Height 5 ft 1 in Weight 125 lb 6 oz BMI 23.7 BP 102/60 Blood Pressure Location Rt brachial Position Sitting Respiration 16 Pulse 87 Pulse Source Pulse Oximeter Temp 97.1 F Temp Source Temporal Artery Scan Pulse Oximetry (%) 95 Oxygen Delivery Method Room Air Intake Visit Reasons: type 2 diabetes Intake Note: Dunia presents in the office today to follow up to her diabetes. Allergies No Known Allergies Allergy (Verified 05/12/25 09:18) Medication List - Last Reconciled 05/12/25 by ANDREA Renae blood sugar diagnostic (OneTouch Verio test strips) Use as directed to check blood glucose once daily. blood-glucose meter As directed cyclobenzaprine 5 - 10 mg (1 - 2 x 5 mg) PO BEDTIME PRN dulaglutide (Trulicity) 0.75 mg (0.5 mL) subcut QWEEK glucose (Dex4 Glucose) 16 grams (4 x 4 gram) PO Q15M PRN ibuprofen 600 mg PO Q8H PRN lancets (OneTouch Delica Plus Lancet) Use as directed to check blood glucose twice daily. metformin ER 1,000 mg (2 x 500 mg) PO BID rosuvastatin (Crestor) 10 mg PO .qhs Tobacco use date assessed: 05/12/25 Dental Screening Dental Screen Date: 05/12/25 Did you have a dental visit in the last 12 months?: No Did you have a dental problem in the last 6 months where you did not have access to dental care?: No Was dental information given to patient?: Patient declined HPI HPI Comments History of Present Illness Details This is a 49-year-old female with a past medical history of hyperlipidemia and type 2 diabetes presenting for follow up. She was diagnosed with type 2 diabetes in August 2023 when she was seen at the emergency department for a lumbar strain. Her labs showed hyperglycemia with a POC initially of 352. Regular metformin caused GI side effects. She tolerates metformin extended release 1000 mg twice daily. Hemoglobin A1c 8.6% down from 9.8%. Fasting glucose is recently are between 130-164. Denies episodes of low sugar. She has glucose tablets. She has no family history of diabetes, but she has laboratory proven type 2 diabetes. She has increase vegetables. She decreased carbohydrates. She does not eat rice or pasta anymore. Eye exam: [facility] 04/29/25, bilateral moderate retinopathy and retinal hemorrhages She is due for a mammogram. She reports her last mammogram was 3 years ago. She has a right breast lump that was previously evaluated with ultrasound and mammography, and she was told it was benign. It was also biopsied. Denies family history of breast cancer. It has not changed. Reports last colonoscopy was 2 years ago in [place] and it was normal. She had a hysterectomy, but she still has her ovaries. Referred to Gynecology for annual exam. Hyperlipidemia is treated with rosuvastatin 10 mg daily. ROS: Constitutional: Denies weight loss, fatigue, fevers, chills or night sweats. Eyes: No vision changes Respiratory: No shortness of breath, cough or wheezing. Cardiovascular: No chest pain, chest pressure or chest discomfort. No palpitations or pedal edema. Gastrointestinal: No abdominal pain, nausea, vomiting, diarrhea or blood in stools. Genitourinary: No dysuria, hematuria, urinary frequency. Neurologic: No numbness or tingling or weakness Skin: No rash or wounds Physical exam: Constitutional: Alert, in no distress. Head: Normocephalic. Neck: Supple, Full range of motion. No lymphadenopathy. No palpable thyroid masses. Respiratory: Clear to auscultation. Cardiovascular: S1 S2 regular. No murmurs. Gastrointestinal: Abdomen soft, non-tender, non-distended. Normal bowel sounds. No palpable masses. Breasts: Declined clothes designer. 3 x 4 cm palpable right breast mass at 09:00. No axillary adenopathy of the breasts. No breast rashes. No nipple discharge. No palpable left breast masses. Psychiatric: Normal mood and affect [facility] Medical History (Updated 05/12/25 @ 13:44 by ANDREA Renae) Breast mass, right Cervical muscle strain Low back pain Left shoulder pain Hyperlipidemia Type II diabetes mellitus No pertinent past medical history Surgical History (Updated 09/30/24 @ 16:23 by ANDREA Renae) History of hysterectomy Family History Mother Cancer Thyroid disorder Maternal Grandmother Cancer Paternal Uncle Cancer Father Cardiovascular disease Social History (Updated 05/12/25 @ 09:19 by Yesika Severino CMA) Household Members: Spouse Both parents involved: No Caregiver staying overnight: No Housing: House Are you a primary hospice spiritual care coordinator to a significant other at home: No Do you presently have visiting nurse or other home services: No 75 years or older and lives alone: No Alcohol intake: never Patient Tobacco Use Status: Never used Tobacco e-Cigarette/Vaping Use: Never Used Second Hand Smoke Exposure: No Current occupational status: employed 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 Cognitive needs: No Hearing needs: No Vision needs: No Questionnaire Thrive Questionnaire Date Thrive assessed: 09/30/24 I am a: Patient What is your living situation today?: I have a steady place to live Within the past 12 months, did the food you bought not last and you didn't have the money to get more?: I choose not to answer this question Within the past 12 months, did you worry whether your food would run out before you got money to buy more?: I choose not to answer this question Do you have trouble paying for medicines?: No Do you have trouble getting transportation to medical appointments?: No Do you have trouble paying your heating and electricity bill?: No Do you have trouble taking care of your child, family member or friend?: No Do you have trouble with day-to-day activities such as bathing, preparing meals, shopping, managing finances, etc.?: No Are you currently unemployed and looking for a job?: No Are you interested in more education?: No Please select the resources that you would like help with: None Currently or been in a relationship where the following occur: I choose not to answer THRIVE Score: 0 KAROLYN-7 AMB Questionnaire KAROLYN-7 Date KAROLYN - 7 assessed: 09/30/24 Source: Developed by Drs. Chad Collins, Amanda Do, Blayne Coker and colleagues, with an educational jenny from [employer]. Physical exam (Primary Care) Vital Signs: Last Vital Signs Temp 97.1 F 05/12/25 09:19 Pulse 87 05/12/25 09:19 Resp 16 05/12/25 09:19 BP 102/60 05/12/25 09:19 Pulse Ox 95 05/12/25 09:19 Oxygen Delivery Method Room Air 05/12/25 09:19 BMI result Body Mass Index 23.7 Tobacco/Smoking Status: Tobacco use Status Tobacco use date assessed 05/12/25 05/12/25 09:22 Patient Tobacco Use Status Never used Tobacco 05/12/25 09:19 e-Cigarette/Vaping Use Never Used 05/12/25 09:19 Thrive Assessment: Date of Thrive Assessment Date Thrive assessed 09/30/24 05/12/25 09:16 Currently or been in a relationship where the following occur: I choose not to answer Results AMB Hemoglobin A1c AMB Hemoglobin A1c 8.6 % Last Edit by Yesika Severino CMA on 05/12/25 09:36 Results Reviewed Results Reviewed: Laboratory Last Values Hgb A1c (Clinic) 8.6 % (4.0-6.0) H 05/12/25 09:25 Coding Level of Care Code Est Pt Level 4 (66172) Complex EM visit Add On G2211 Diagnoses Type 2 diabetes mellitus with both eyes affected by moderate nonproliferative retinopathy without macular edema, without long-term current use of insulin E11.3393 Diabetes mellitus skilled nursing insulin use: without superintendent marine oil terminal use Diabetes mellitus complication status: with ophthalmic complications Diabetes mellitus complication detail: with diabetic retinopathy Diabetic retinopathy severity: with moderate nonproliferative retinopathy Diabetes mellitus macular edema: without macular edema Laterality: bilateral Mass of upper outer quadrant of right breast N63.11 Breast mass location: upper outer quadrant Pure hypercholesterolemia E78.00 Hyperlipidemia type: pure hypercholesterolemia Assessment & Plan Assessment & Plan (1) Type II diabetes mellitus: Code(s): E11.9 - Type 2 diabetes mellitus without complications Category: Medical Qualifiers: Diabetes mellitus skilled nursing insulin use: without skilled nursing use Diabetes mellitus complication status: with ophthalmic complications Diabetes mellitus complication detail: with diabetic retinopathy Diabetic retinopathy severity: with moderate nonproliferative retinopathy Diabetes mellitus macular edema: without macular edema Laterality: bilateral Qualified Code(s): E11.3393 - Type 2 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 Reviewed instructions for hypoglycemia. Continue metformin extended release 1000 mg twice daily. Continue diabetic diet. She is compliant with glucose monitoring. Discussed medication options. Denies contraindications to GLP 1. Start Trulicity 0.75 mg weekly. (2) Breast mass, right: Code(s): N63.10 - Unspecified lump in the right breast, unspecified quadrant Category: Medical Qualifiers: Breast mass location: upper outer quadrant Qualified Code(s): N63.11 - Unspecified lump in the right breast, upper outer quadrant Plan: Per patient this was previously imaged and biopsied. She is due for mammography. Ordered repeat ultrasound and bilateral mammogram. (3) Hyperlipidemia: Code(s): E78.5 - Hyperlipidemia, unspecified Category: Medical Qualifiers: Hyperlipidemia type: pure hypercholesterolemia Qualified Code(s): E78.00 - Pure hypercholesterolemia, unspecified Plan: Continue rosuvastatin. Continue Mediterranean diet. Exercise regularly. Check lipid profile. Plan Follow up in 1 month to review diabetic medication. Orders: Orders MM diagnostic mammo BI Today N63.10 - Unspecified lump in the right breast, unspecified quadrant AMB Hemoglobin A1c Today E11.9 - Type 2 diabetes mellitus without complications Lipid Panel Today E11.9 - Type 2 diabetes mellitus without complications, E78.5 - Hyperlipidemia, unspecified Comprehensive Met. Panel Today E11.9 - Type 2 diabetes mellitus without complications US breast RT limited Today N63.10 - Unspecified lump in the right breast, unspecified quadrant Referrals AIRLINE MECHANIC Referral [id number] - Encounter for gynecological examination (general) (routine) without abnormal findings Medications: New blood sugar diagnostic (SlinkyTouch Verio test strips) Use as directed to check blood glucose once daily. 100 ea 11RF dulaglutide (Trulicity) 0.75 mg (0.5 mL) subcut QWEEK 2 mL 0RF Refilled metformin ER 1,000 mg (2 x 500 mg) PO BID 360 tabs 1RF
[2025-05-12 09:19] VITALS: BP 102/60; PULSE 87; RESP 16; TEMP 36.2; O2SAT 95; BMI 23.7
--- OUTSIDE RECORDS SUMMARY | 2025-05-12 09:43 | XMS_ITS | Clinical Summary ---
Author Organization [facility] Address [address] [place], [place] [id number] Phone Care Team Providers Care Latex Spooler Name Role Phone Pcp, Not Required Primary [...] on file Insurance [employer] Care Teams Latex Spooler Relationship Specialty Start Date End Date Pcp, Not Required [address] [place] [phone] PCP - General 03/24/24 Additional Source Comments The information contained in this document represents components of the legal health record. It is not the complete legal health record.[facility]
== END 2025-05-12 10:02 | disposition home or self-care (01) ==
LOC: HO.HMCFM 09:01
PROVIDERS: PCP Physician Assistant Medical; Visit Provider Physician Assistant Medical
DX: E11.3393 Type 2 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, bilateral (principal); N63.11 Unspecified lump in the right breast, upper outer quadrant; E78.00 Pure hypercholesterolemia, unspecified

== ENCOUNTER 2025-05-17 09:12 | Outpatient (AMB) | payer OTHER, SELFPAY ==
[2025-05-17 09:26] VITALS: BMI 23.6
--- NOTE | 2025-05-17 09:26 | A.OFFVIS_ITS ---
VS Expanded 05/17/25 09:26 Height 5 ft 1 in Weight 125 lb BMI 23.6 Intake Visit Reasons: T2DM Allergies No Known Allergies Allergy (Verified 05/12/25 09:18) Nutrition Presentation Details: Pt presents for MNT f/u for T2DM Pt reports doing better , having a better meal routine, working on reducing simple carbs Per BG Record fasting bg ranging from 112-150 mg/dl BS Monitoring Most Recent Diabetes Results: Cholesterol, (<200) 224 mg/dL H 05/12/25 HDL Cholesterol, (>40) 62 mg/dL 05/12/25 Triglycerides, (<150) 101 mg/dL 05/12/25 Creatinine, (0.5-1.4) 0.63 mg/dL 05/12/25 BUN, (9-16) 8 mg/dL L 05/12/25 Sodium, (135-145) 142 mmol/L 05/12/25 Potassium, (3.3-5.1) 3.7 mmol/L 05/12/25 Chloride, (96-108) 107 mmol/L 05/12/25 Carbon Dioxide, (22-29) 28 mmol/L 05/12/25 Calcium, (8.4-10.2) 9.0 mg/dL 05/12/25 AST, (5-31) 16 U/L 05/12/25 ALT, (0-31) 7 U/L 05/12/25 Total Protein, (6.5-8.0) 7.1 g/dL 05/12/25 Albumin, (3.5-5.0) 4.2 g/dL 05/12/25 [facility] Medical History (Updated 05/12/25 @ 13:44 by ANDREA Renae) Breast mass, right Cervical muscle strain Low back pain Left shoulder pain Hyperlipidemia Type II diabetes mellitus No pertinent past medical history Surgical History (Updated 09/30/24 @ 16:23 by ANDREA Renae) History of hysterectomy Family History Mother Cancer Thyroid disorder Maternal Grandmother Cancer Paternal Uncle Cancer Father Cardiovascular disease Social History (Updated 05/12/25 @ 09:19 by Yesika Severino CMA) Household Members: Spouse Both parents involved: No Caregiver staying overnight: No Housing: House Are you a primary health care facility administrator to a significant other at home: No Do you presently have visiting nurse or other home services: No 75 years or older and lives alone: No Alcohol intake: never Patient Tobacco Use Status: Never used Tobacco e-Cigarette/Vaping Use: Never Used Second Hand Smoke Exposure: No Current occupational status: employed 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3393 - Type 2 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, bilateral Plan: Wt: 58 Kg ( 11/02 ), 57 kg (02/02), 8, 06/04 Est kcal needs as per MSJ: 1600 (40% carb, 30% protein/fat) Est fluid needs as per 25-30 ml/d: 1745 Est prot per day as per 1 g/kg bw: 60 Recommend fiber intake : 8-10 g per day and gradually increase to 25-28 g per day for women and 35-38 g for men or as tolerated Recommend sodium intake per day : less than 1500 mg less than 2000 mg Educated patient on: ( R = reviewed V = verbalizes understanding N/R = needs review N/A = not applicable * Food sources of carbohydrate, adequate serving sizes and its role in various health conditions: R * Differences between complex carbohydrates a simple carbohydrates, role of fiber in diet: R * Lean protein sources of foods: R * Differences between types of fats and role in diet (mono on saturated fat fatty acids, saturated fatty acids, trans fats): R * Food sources of sodium in salt and healthy modifications for heart health in kidney health: R V R/V * Vitamins and minerals: R V (calcium sources of foods reviewed) * Healthy plate method concept: R * Physical activity: Benefits a precaution: R V * Hypoglycemia protocol (rule of 15): R V N/R * Dietary prevention of Hyperglycemia: R Patient Instructions: Continue working on balancing meal, reducing total carb to 45 g at meal following healthy plate method Choose a snack in between meal consisting of less than 20 g carb (yogurt , kiwi as example) Keep hydrated by having water, low sugar beverages Coding Level of Care Code Nutr Indiv Subseq (91082) Diagnoses Type 2 diabetes mellitus with both eyes affected by 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
--- OUTSIDE RECORDS SUMMARY | 2025-05-17 10:11 | XMS_ITS | Clinical Summary ---
Author Organization [facility] Address [address] [place], [place] [phone] Phone Care Team Providers Care First Beater Name Role Phone Pcp, Not Required Primary [...] 2023 INFLUENZA VACCINE (#1) 2025 COVID-19 VACCINE (1 - 2024-2 6 season) 2025 RSV VACCINE (1 - 1-dose 75+ series) 01/29/2048 HEPATITIS A VACCINES Aged Out No long [...] on file Insurance [employer] Care Teams First Beater Relationship Specialty Start Date End Date Pcp, Not Required [address] [place] [id number] PCP - General 03/24/24 Additional Source Comments The information contained in this document represents components of the legal health record. It is not the complete legal health record.[facility]
== END 2025-05-17 09:46 | disposition home or self-care (01) ==
LOC: HO.ENCR 09:13
PROVIDERS: PCP Physician Assistant Medical; Visit Provider Dietitian, Registered
DX: E11.3393 Type 2 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, bilateral (principal)

== ENCOUNTER → 2025-05-17 09:12 | Outpatient (BNVA) | payer OTHER, SELFPAY | PROVIDERS: PCP Physician Assistant Medical; Visit Provider Dietitian, Registered | DX: E11.3393 Type 2 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, bilateral (principal); Z71.3 Dietary counseling and surveillance | CPT/HCPCS: 97803 ==

== ENCOUNTER 2025-06-16 10:57 | Outpatient (AMB) | payer OTHER, SELFPAY ==
--- NOTE | 2025-06-16 11:08 | MHC.PC.OV ---
Vital Signs 06/16/25 11:11 Height 5 ft 1 in Weight 117 lb BMI 22.1 BP 102/62 Blood Pressure Location Rt brachial Position Sitting Respiration 16 Pulse 106 H Pulse Source Pulse Oximeter Temp 97.3 F Temp Source Temporal Artery Scan Pulse Oximetry (%) 97 Oxygen Delivery Method Room Air Intake Visit Reasons: Type II dm Intake Note: Dunia presents in the office today for a follow up to diabetes. [facility] Only eating one meal a day. Allergies dulaglutide (From [facility]) Adverse Reaction (Intermediate, Verified 06/16/25 11:41) nausea, vomiting, dizziness, stomach pain Medication List - Last Reconciled 06/17/25 by ANDREA Renae blood sugar diagnostic (MedefyTouch Verio test strips) Use as directed to check blood glucose once daily. blood-glucose meter As directed cyclobenzaprine 5 - 10 mg (1 - 2 x 5 mg) PO BEDTIME PRN empagliflozin (Jardiance) 10 mg PO QAM glucose (Dex4 Glucose) 16 grams (4 x 4 gram) PO Q15M PRN ibuprofen 600 mg PO Q8H PRN lancets (OneTouch Delica Plus Lancet) Use as directed to check blood glucose twice daily. metformin ER 1,000 mg (2 x 500 mg) PO BID rosuvastatin 20 mg PO BEDTIME Tobacco use date assessed: 06/16/25 Dental Screening Dental Screen Date: 06/16/25 Did you have a dental visit in the last 12 months?: No Did you have a dental problem in the last 6 months where you did not have access to dental care?: No Was dental information given to patient?: Patient declined HPI HPI Comments History of Present Illness Details This is a 49-year-old female with a past medical history of hyperlipidemia and type 2 diabetes presenting for follow up. She was diagnosed with type 2 diabetes in August 2023 when she was seen at the emergency department for a lumbar strain. Her labs showed hyperglycemia with a POC initially of 352. Immediate release metformin caused GI side effects. She tolerates metformin extended release 1000 mg twice daily. Hemoglobin A1c 8.6% down from 9.8%. Denies episodes of low sugar. She has glucose tablets. She has no family history of diabetes, but she has laboratory proven type 2 diabetes. She has increase vegetables. She decreased carbohydrates. She does not eat rice or pasta anymore. She had a visit with a dietitian, and she has a follow up. She took 1 dose of Trulicity, but she had abdominal pain, decreased appetite and nausea and vomiting. She discontinued it. Her appetite is to returning slowly. She is eating 2 meals per day now. Interval weight loss. Eye exam: [facility] 04/29/25, bilateral moderate retinopathy and retinal hemorrhages. She has a follow up next Friday. Her mammogram is scheduled on 07/05/2025.She reports her last mammogram was 3 years ago. She has a right breast lump that was previously evaluated with ultrasound and mammography, and she was told it was benign. It was also biopsied. Denies family history of breast cancer. At her last visit breast exam demonstrated a 3 x 4 cm palpable right breast mass at 09:00. She has an appointment on 07/05/25. Reports last colonoscopy was 2 years ago in [place] and it was normal. Hyperlipidemia is treated with rosuvastatin. The dose was increased to 20 mg to target a LDL of less than 100. She denies side effects on it. ROS: Constitutional: Denies weight loss, fatigue, fevers, chills or night sweats. Eyes: No vision changes Respiratory: No shortness of breath, cough or wheezing. Cardiovascular: No chest pain, chest pressure or chest discomfort. No palpitations or pedal edema. Gastrointestinal: Denies blood in stools, abdominal pain, nausea and vomiting resolved. Appetite is decreased but returning since discontinuing GLP 1. Genitourinary: No dysuria, hematuria, urinary frequency. Neurologic: No numbness or tingling or weakness Skin: No rash or wounds Physical exam: Constitutional: Alert, in no distress. Head: Normocephalic. Neck: Supple, Full range of motion. No lymphadenopathy. No palpable thyroid masses. Respiratory: Clear to auscultation. Cardiovascular: S1 S2 regular. No murmurs. Psychiatric: Normal mood and affect [facility] Medical History (Updated 05/12/25 @ 13:44 by ANDREA Renae) Breast mass, right Cervical muscle strain Low back pain Left shoulder pain Hyperlipidemia Type II diabetes mellitus No pertinent past medical history Surgical History (Updated 09/30/24 @ 16:23 by ANDREA Renae) History of hysterectomy Family History Mother Cancer Thyroid disorder Maternal Grandmother Cancer Paternal Uncle Cancer Father Cardiovascular disease Social History (Updated 06/16/25 @ 11:11 by Yesika Severino CMA) Household Members: Spouse Both parents involved: No Caregiver staying overnight: No Housing: House Are you a primary auto care center manager to a significant other at home: No Do you presently have visiting nurse or other home services: No 75 years or older and lives alone: No Alcohol intake: never Patient Tobacco Use Status: Never used Tobacco e-Cigarette/Vaping Use: Never Used Second Hand Smoke Exposure: No Current occupational status: employed 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 Cognitive needs: No Hearing needs: No Vision needs: No Questionnaire Thrive Questionnaire Date Thrive assessed: 09/30/24 I am a: Patient What is your living situation today?: I have a steady place to live Within the past 12 months, did the food you bought not last and you didn't have the money to get more?: I choose not to answer this question Within the past 12 months, did you worry whether your food would run out before you got money to buy more?: I choose not to answer this question Do you have trouble paying for medicines?: No Do you have trouble getting transportation to medical appointments?: No Do you have trouble paying your heating and electricity bill?: No Do you have trouble taking care of your child, family member or friend?: No Do you have trouble with day-to-day activities such as bathing, preparing meals, shopping, managing finances, etc.?: No Are you currently unemployed and looking for a job?: No Are you interested in more education?: No Please select the resources that you would like help with: None Currently or been in a relationship where the following occur: I choose not to answer THRIVE Score: 0 KAROLYN-7 AMB Questionnaire KAROLYN-7 Date KAROLYN - 7 assessed: 09/30/24 Source: Developed by Drs. Chad Collins, Amanda Do, Blayne Coker and colleagues, with an educational jenny from [employer]. Physical exam (Primary Care) Vital Signs: Last Vital Signs Temp 97.3 F 06/16/25 11:11 Pulse 106 H 06/16/25 11:11 Resp 16 06/16/25 11:11 BP 102/62 06/16/25 11:11 Pulse Ox 97 06/16/25 11:11 Oxygen Delivery Method Room Air 06/16/25 11:11 BMI result Body Mass Index 22.1 Tobacco/Smoking Status: Tobacco use Status Tobacco use date assessed 06/16/25 06/16/25 11:15 Patient Tobacco Use Status Never used Tobacco 06/16/25 11:15 e-Cigarette/Vaping Use Never Used 06/16/25 11:15 Thrive Assessment: Date of Thrive Assessment Date Thrive assessed 09/30/24 06/16/25 11:15 Currently or been in a relationship where the following occur: I choose not to answer Coding Level of Care Code Est Pt Level 4 (49565) Complex EM visit Add On G2211 Diagnoses Type 2 diabetes mellitus with both eyes affected by moderate nonproliferative retinopathy without macular edema, without long-term current use of insulin E11.3393 Diabetes mellitus complication detail: with diabetic retinopathy Diabetes mellitus complication status: with ophthalmic complications Diabetes mellitus long chain beamer insulin use: without long chain beamer use Diabetes mellitus macular edema: without macular edema Diabetic retinopathy severity: with moderate nonproliferative retinopathy Laterality: bilateral Mass of upper outer quadrant of right breast N63.11 Breast mass location: upper outer quadrant Pure hypercholesterolemia E78.00 Hyperlipidemia type: pure hypercholesterolemia Assessment & Plan Assessment & Plan (1) Type II diabetes mellitus: Code(s): E11.9 - Type 2 diabetes mellitus without complications Category: Medical Qualifiers: Diabetes mellitus complication detail: with diabetic retinopathy Diabetes mellitus complication status: with ophthalmic complications Diabetes mellitus long chain beamer insulin use: without detention use Diabetes mellitus macular edema: without macular edema Diabetic retinopathy severity: with moderate nonproliferative retinopathy Laterality: bilateral Qualified Code(s): E11.3393 - Type 2 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 Reviewed instructions for hypoglycemia. Continue metformin extended release 1000 mg twice daily. GLP 1 discontinued due to side effects. Reviewed risks and benefits of SGLT2. Patient will start Jardiance 10 mg every morning. Monitor closely for signs of vaginitis and UTI. Check renal function in 2 weeks after starting medication. Continue diabetic diet. She is compliant with glucose monitoring. (2) Breast mass, right: Code(s): N63.10 - Unspecified lump in the right breast, unspecified quadrant Category: Medical Qualifiers: Breast mass location: upper outer quadrant Qualified Code(s): N63.11 - Unspecified lump in the right breast, upper outer quadrant Plan: Per patient this was previously imaged and biopsied. Mammogram is scheduled. (3) Hyperlipidemia: Code(s): E78.5 - Hyperlipidemia, unspecified Category: Medical Qualifiers: Hyperlipidemia type: pure hypercholesterolemia Qualified Code(s): E78.00 - Pure hypercholesterolemia, unspecified Plan: Continue rosuvastatin. Continue Mediterranean diet. Exercise regularly. Check lipid profile. Plan Follow up in 3 months for type 2 diabetes. 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
[2025-06-16 11:11] VITALS: BP 102/62; PULSE 106; RESP 16; TEMP 36.3; O2SAT 97; BMI 22.1
== END 2025-06-16 11:50 | disposition home or self-care (01) ==
LOC: HO.HMCFM 10:58
PROVIDERS: PCP Physician Assistant Medical; Visit Provider Physician Assistant Medical
DX: E11.3393 Type 2 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, bilateral (principal); N63.11 Unspecified lump in the right breast, upper outer quadrant; E78.00 Pure hypercholesterolemia, unspecified

== ENCOUNTER 2025-07-05 08:40 | Outpatient (REF) | payer OTHER, SELFPAY ==
--- NOTE | ~2025-07-05 | MM_ITS ---
EXAMINATION(S): 1. MM DIAGNOSTIC DIGITAL BREAST TOMOSYNTHESIS, BILATERAL 2. TARGETED ULTRASOUND OF THE RIGHT BREAST CLINICAL INFORMATION: -According to requisition: Right breast mass at 9:00 - According to the previous report from August 24, 2019 at outside facility: 1) right breast mass at 9 o'clock position at 5 cm from the nipple measuring 3.3 x 1.4 x 2.6 cm, containing biopsy clip, previously 1.5 cm in April 2015. 2) palpable left breast mass at 12 o'clock position at 5 cm from the nipple. An ultrasound-guided needle core biopsy was recommended. -Ultrasound-guided needle core biopsy on September 08, 2017 of right breast mass at 9 o'clock position at 5 cm from the nipple. Clip placed. Pathology results showed benign breast tissue showing fibrocystic changes with sclerosing adenosis and usual ductal hyperplasia. - Ultrasound-guided needle core biopsy on August 24, 2019 of the palpable left breast mass at 12 o'clock position (only report available for review). Top hat biopsy marker clip. Pathology results showed benign breast tissue with stromal fibrosis and focal pseudoangiomatosis stromal hyperplasia (PASH). A 6-month follow-up ultrasound was recommended. COMPARISON: Comparison made to multiple prior images from outside facility, most recent August 24, 2019, and most remote February 04, 2015. TECHNIQUE: Digital breast tomosynthesis is performed in both the mediolateral oblique and craniocaudal views along with computer-aided detection (CAD). Synthesized 2D images are generated from the tomosynthesis. Skin BB marker was placed at the location of the palpable concern in the right breast as indicated by the patient. FINDINGS: BREAST COMPOSITION: There are scattered areas of fibroglandular density. RIGHT BREAST: Oval mass measuring up to 4.2 cm in the upper outer quadrant centered at about 3 cm from the nipple, contains the biopsy clip; prior maximum dimension of 3.1 cm measured on mammogram on August 24, 2019. No new masses, suspicious calcifications or other abnormalities are seen. Targeted ultrasound of the right breast was performed at the location of the palpable concern as indicated by the patient. The survey shows an approximately 4.0 x 1.5 x 3.8 cm solid oval hypoechoic mass at 9 o'clock position 2 cm from the nipple. No internal vascularity demonstrated with color Doppler evaluation. Prior sonographic measurements of 2.1 x 1.0 x 2.0 cm on August 27, 2017. Note that this mass was annotated in prior studies as located at 3 cm or 5 cm from the nipple. LEFT BREAST: Tissue marker from previous needle core biopsy. No significant masses, suspicious calcifications or other abnormalities are seen. MM/MM tomosynthesis diagnostic BI IMPRESSION: RIGHT BREAST: Palpable concern correlates with the previously biopsied mass located at 9 o'clock position. Benign, no evidence of malignancy. Given the clinical concern and progressive increase in size from multiple prior studies, surgical consult is recommended. LEFT BREAST: Benign, no mammographic evidence of malignancy. Normal interval follow-up is recommended in 12 months. ASSESSMENT: BI-RADS: Category 2: Benign RECOMMENDATION: Surgical Consult Results were provided to the patient at time of visit by the technologist. This patient's information was entered into a reminder system with a target due date for their next mammogram. Electronically signed by: Ant Patrick MD 07/05/2025 11:55 AM [facility]
--- OUTSIDE RECORDS SUMMARY | 2025-07-05 09:01 | XMS_ITS | Clinical Summary ---
Author Organization [facility] Address [address] [place], [place] [id number] Phone Care Team Providers Care Tunnel Drier Operator Name Role Phone Pcp, Not Required Primary [...] on file Insurance [employer] Care Teams Tunnel Drier Operator Relationship Specialty Start Date End Date Pcp, Not Required [address] [place] [id number] PCP - General 03/24/24 Additional Source Comments The information contained in this document represents components of the legal health record. It is not the complete legal health record.[facility]
== END 2025-07-05 08:41 | disposition home or self-care (01) ==
LOC: HO.MAMMO 08:40
PROVIDERS: PCP Physician Assistant Medical; Visit Provider Physician Assistant Medical
DX: N63.11 Unspecified lump in the right breast, upper outer quadrant (principal)
CPT/HCPCS: 76642; 77062; 77066

== ENCOUNTER → 2025-07-05 09:00 | Outpatient (BNV) | payer OTHER, SELFPAY | PROVIDERS: PCP Physician Assistant Medical; Visit Provider Radiology Body Imaging | DX: N63.15 Unspecified lump in the right breast, overlapping quadrants (principal) | CPT/HCPCS: 76642; 77062; 77066 ==

== ENCOUNTER 2025-08-03 08:23 | Outpatient (AMB) | payer OTHER, SELFPAY ==
--- OUTSIDE RECORDS SUMMARY | 2025-08-03 08:25 | XMS_ITS | Clinical Summary ---
Author Organization [facility] Address [address] [place], [place] [id number] Phone Care Team Providers Care Car Body Mechanic Name Role Phone Pcp, Not Required Primary [...] on file Insurance [employer] Care Teams Car Body Mechanic Relationship Specialty Start Date End Date Pcp, Not Required PCP - General 03/24/24 Additional Source Comments The information contained in this document represents components of the legal health record. It is not the complete legal health record.[facility]
--- NOTE | 2025-08-03 08:26 | A.OFFVIS_ITS ---
Vital Signs 08/03/25 08:27 Height 5 ft 1 in Weight 121 lb BMI 22.9 BP 119/65 Blood Pressure Location Rt brachial Position Sitting Pulse 86 Intake Visit Reasons: Unspecified lump in the right breast, upper outer Intake Note: Patient referred by Ruth Gray for unspecified lump in Rt upper outer breast. Patient c/o: feels lump. Denies pain, tenderness, nipple discharge. No personal or family hx of breast CA. Hosiery Mater Required: No Accompanied by: Self / Same As Patient Allergies dulaglutide (From [facility]) Adverse Reaction (Intermediate, Verified 08/03/25 08:34) nausea, vomiting, dizziness, stomach pain HPI HPI Unspecified lump in the right breast, upper outer: Details: [age] year old female referred for a right breast mass. She has had this mass for several years now. She had an ultrasound biopsy of this mass in 2019 showed a benign breast tissue with stromal fibrosis and focal pseudo angiomatous stromal hyperplasia. In 2018 the mass apparently measured 2.1 x 1 x 2.0 cm. She had an ultrasound done last June, showing this mass to be 4.0 x 1.5 x 3.8 cm. She was therefore referred to me because of this significant increase in the size of the mass. She used to have her mammograms in [place] but she moved here to the area about 2 years ago. Her menarche was at age of 10. She had never been . She had a hysterectomy at age of 43 because of fibroids. She denies any strong family history of breast cancer. She has diabetes and states that last hemoglobin A1c was 8. She says she is healthy otherwise. [facility] Medical History Breast mass, right Cervical muscle strain Low back pain Left shoulder pain Hyperlipidemia Type II diabetes mellitus No pertinent past medical history Surgical History History of hysterectomy Family History Mother Cancer Thyroid disorder Maternal Grandmother Cancer Paternal Uncle Cancer Father Cardiovascular disease Social History Household Members: Spouse Both parents involved: No Caregiver staying overnight: No Housing: House Are you a primary hearing healthcare practitioner to a significant other at home: No Do you presently have visiting nurse or other home services: No 75 years or older and lives alone: No Alcohol intake: never Patient Tobacco Use Status: Never used Tobacco e-Cigarette/Vaping Use: Never Used Second Hand Smoke Exposure: No Current occupational status: employed 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 Cognitive needs: No Hearing needs: No Vision needs: No Review of Systems Const Denies chills and Denies fever(s) Card Denies chest pain, Denies dyspnea and Denies dyspnea on exertion Resp Denies cough, Denies dyspnea and Denies dyspnea on exertion GI Denies hematochezia and Denies change in bowel habits Denies hematuria Musc Denies back pain and Denies limited range of motion Neuro Denies focal weakness and Denies convulsions Psych Denies depression and Denies mood swings Physical Exam Vital Signs: Last Vital Signs Pulse 86 08/03/25 08:27 BP 119/65 08/03/25 08:27 BMI result Body Mass Index 22.9 Const General: comfortable and no acute distress Orientation/consciousness: patient oriented x3 Neck Neck: Yes no lymphadenopathy Chest Other: Palpable well-defined right breast mass, about 4 cm, very mobile Resp Auscultation: clear to auscultation bilaterally Cardio Rhythm: regular rhythm GI Palpation (GI): Soft to palpation, nontender and no guarding Neuro General: patient oriented x3 Assessment & Plan Assessment & Plan (1) Breast mass, right: Code(s): N63.10 - Unspecified lump in the right breast, unspecified quadrant Category: Medical Qualifiers: Breast mass location: upper outer quadrant Qualified Code(s): N63.11 - Unspecified lump in the right breast, upper outer quadrant Plan: She wants to proceed with the excision in view of the significant increase in size of the mass. She does state that she has some discomfort from this area. Previous biopsy had shown this to be a benign mass. I reviewed with her the technique of excision under anesthesia. I explained the risks including but not limited to bleeding, infections, hematoma, postop pain, as well as the benefits and alternatives. I explained to her what to expect postoperatively. She understands and wants to proceed. Orders: Referrals General Surgery Procedure Notification N63.11 - Unspecified lump in the right breast, upper outer quadrant Coding Level of Care Code New Pt Level 3 (36073) Diagnoses Mass of upper outer quadrant of right breast N63.11 Breast mass location: upper outer quadrant
[2025-08-03 08:27] VITALS: BP 119/65; PULSE 86; BMI 22.9
== END 2025-08-03 08:45 | disposition home or self-care (01) ==
LOC: HO.HGS 08:24
PROVIDERS: PCP Physician Assistant Medical; Visit Provider Surgery
DX: N63.11 Unspecified lump in the right breast, upper outer quadrant (principal)
CPT/HCPCS: 99203